=== PATIENT | male | born 1970 | race Caucasian/White ===

== ENCOUNTER → 2016-08-30 | Outpatient (CLI) | payer OTHER ==
[~2016-08-30] MED LIST: DIAZ5TAB4 PO; LANS30CA16 PO; PREG100C PO; PROP80TA PO; SERT25TA PO; SINCALIDE (KINEVAC) 5 MCG ONE
== END | disposition home or self-care (01) ==
LOC: PETCFH 10:00
PROVIDERS: ATTEND Internal Medicine Gastroenterology
DX: R10.9 Unspecified abdominal pain (principal)
CPT/HCPCS: 78227; A9537; J2805

== ENCOUNTER 2016-10-19 06:34 | Emergency (ER) | payer OTHER ==
[~2016-10-19] VITALS: Ht 180.3 cm; Wt 109.5 kg
[~2016-10-19 06:34] MED LIST changes: -SINCALIDE (KINEVAC) 5 MCG ONE
[2016-10-19] MEDS ORDERED: PANT40TA3 PO (07:02)
[2016-10-19] MEDS ORDERED: SODIUM CHLORIDE FLUSH 10ML SYR IVF ONE (07:30)
[2016-10-19] MEDS ORDERED: ONDANSETRON 2MG/ML, 2ML IVPush ONE (07:30)
[2016-10-19] MEDS ORDERED: SODIUM CHLORIDE 0.9% 1,000ML IVBOLUS ONE (07:30)
[2016-10-19 07:39] LABS: ASPARTATE AMINO TRANSFERASE 26 U/L (15-37); BLOOD UREA NITROGEN 14 mg/dL (7-18)
[2016-10-19] MEDS ORDERED: ONDANSETRON 2MG/ML, 2ML ONE (07:42)
[2016-10-19] MEDS ORDERED: MORPHINE SULFATE 4 MG/ML, 1ML ONE ×2 (07:42→08:59)
[2016-10-19] MEDS: MORPHINE SULFATE 4 MG/ML, 1ML IVPush PRN ×2 (07:46→09:01)
[2016-10-19] MEDS ORDERED: OMNIPAQUE 350 MG/ML, 150 ML BOTTLE ONE (09:17)
[2016-10-19 11:06] VITALS: BP 168/111
== END 2016-10-19 11:07 | disposition home or self-care (01) ==
LOC: ED 07:22
DX: R10.11 Right upper quadrant pain (principal); I10 Essential (primary) hypertension; N28.1 Cyst of kidney, acquired; K21.9 Gastro-esophageal reflux disease without esophagitis
CPT/HCPCS: 36415; 74177; 76700; 80053; 81003; 83690; 85025; 96361; 96374; 96375; 96376; 99285; J2405; J7030; Q9967